=== PATIENT | female | born 1935 | race Caucasian/White ===

== ENCOUNTER → 2017-07-03 | Outpatient (CLI) | payer MEDICARE, OTHER ==
[~2017-07-03] MED LIST: ABAC300; ALBU90I INH; ALBU90OI61 INH; AMLO10 PO; ASPI81EC PO; AZIT250 PO; Amlodipine Besy10 MG PO; BENZ100A PO; Bupropion HCl150 M2 PO; CEPH500 PO; CODGUAEL PO; DOCU100 PO; DONE10 PO; EXFORGE; FURO20 PO; FURO40 PO; GABA100 PO; HUMULIN SC; HYDACE5 PO; HYDR1TAB94 PO; Hair, Skin & N1 EACH PO; IBUP400; INS70/30I SC; INSU7030P SC; IRON325 MG PO; Klor-Con 1010 MEQ PO; LORA.5 PO; Lisinopril2.5 MG PO; MELO7.5 PO; METF850 PO; METO25ER PO; MYRBETRIQ50 MG PO; Neurontin 100100 MG PO; OMEP20ER PO; OXYB5 PO; PARO10 PO; PARO20 PO; POTCHL10ER PO; PRAV20 PO; PRED20 PO; Paxil40 MG PO; SIMV10 PO; SULTRIDS PO; Simvastatin20 MG PO; Toviaz4 MG PO; XARELTO20 MG PO
[2017-07-03 18:29] LABS: Source, Urine Clean Catch
[2017-07-03 18:38] LABS: Bacteria Many /hpf; Squamous Epithelial Cells Mod /hpf (Few)
[2017-07-03 18:42] LABS: BASOPHILS ABSOLUTE AUTO 0.04 K/mm3 (0.00-0.23); BASOPHILS PERCENT AUTO 1 % (0-2); EOSINOPHILS ABSOLUTE AUTO 0.05 K/mm3 (0.00-0.68); EOSINOPHILS PERCENT AUTO 1 % (0-6); Hematocrit 35.5 % (33.0-51.0); Hemoglobin 12.2 g/dL (11.5-16.0); IMMATURE GRAN ABSOLUTE AUTO 0.02 K/mm3 (0.00-0.10); IMMATURE GRAN PERCENT AUTO 0 % (0-1); LYMPHOCYTES ABSOLUTE AUTO 1.95 K/mm3 (0.84-5.20); LYMPHOCYTES PERCENT AUTO 24 % (21-46); MONOCYTES ABSOLUTE AUTO 0.72 K/mm3 (0.16-1.47); MONOCYTES PERCENT AUTO 9 % (4-13); Mean Corpuscular HGB 31.8 pg (26.0-34.0); Mean Corpuscular HGB Conc 34.4 g/dL (31.5-36.5); Mean Corpuscular Volume 92 fL (80-100); Mean Platelet Volume 8.8 fL (9.1-12.4); NEUTROPHILS ABSOLUTE AUTO 5.22 K/mm3 (1.96-9.15); NEUTROPHILS PERCENT AUTO 65 % (41-73); Platelet Count 274 K/mm3 (150-400); RDW Coefficient Variation 12.9 % (11.7-14.2); RDW Standard Deviation 42.9 fL (35.1-46.3); Red Blood Cell Count 3.84 M/mm3 (3.80-5.20)
[2017-07-03 18:59] LABS: Albumin, Blood 3.5 g/dL (3.4-5.0); Bilirubin, Total 0.8 mg/dL (0.1-1.0); Bun/Creatinine Ratio 13.2 (12.0-20.0); Creatinine, Blood 1.29 mg/dL (0.40-1.00); Globulin, Blood 3.5 g/dL (2.2-4.0); Potassium, Blood 4.4 mmol/L (3.5-5.5)
== END | disposition home or self-care (01) ==
LOC: LAB SHORT 18:27 → LAB EV 18:27
PROVIDERS: Physician Assistant
DX: R06.00 Dyspnea, unspecified (principal); N39.0 Urinary tract infection, site not specified; R35.0 Frequency of micturition
CPT/HCPCS: 80053; 81015; 83880; 85025; 87077; 87086; 87186

== ENCOUNTER 2018-05-01 15:04 | Inpatient (IN) | payer MEDICARE, OTHER ==
[~2018-05-01] VITALS: Ht 170.2 cm; Wt 91.4 kg
[~2018-05-01 15:04] MED LIST changes: -INS70/30I SC; -METO25ER PO; +METO50ER PO; +NOVOLIN 70100 UNIT/1 SC; +XARELTO15 MG PO; -XARELTO20 MG PO
[2018-05-01 19:14] LABS: Source, Urine Catheter
[2018-05-01 19:28] LABS: Bilirubin, Urine Neg (Neg); Blood, Urine Neg (Neg); Glucose Qualitative, Urine Neg (Neg); Ketones, Urine Neg (Neg); Leukocyte Esterase, Urine 1+ (Neg); Nitrite, Urine Pos (Neg); Protein, Urine Neg (Neg); Urobilinogen, Urine NORM (Normal)
[2018-05-01 20:00] LABS: Appearance, Urine Hazy (Clear); Color, Urine Yellow (P-Yellow)
[2018-05-01 20:06] LABS: Amorphous Light (0-Heavy); Bacteria Many /hpf; Red Blood Cells, Urine 0-2 /hpf (0-2); Squamous Epithelial Cells Few /hpf (Few)
[2018-05-01 22:02] LABS: BASOPHILS ABSOLUTE AUTO 0.03 K/mm3 (0.00-0.23); BASOPHILS PERCENT AUTO 1 % (0-2); EOSINOPHILS ABSOLUTE AUTO 0.09 K/mm3 (0.00-0.68); EOSINOPHILS PERCENT AUTO 2 % (0-6); Hematocrit 32.6 % (33.0-51.0); Hemoglobin 10.8 g/dL (11.5-16.0); IMMATURE GRAN ABSOLUTE AUTO 0.01 K/mm3 (0.00-0.10); IMMATURE GRAN PERCENT AUTO 0 % (0-1); LYMPHOCYTES ABSOLUTE AUTO 1.36 K/mm3 (0.84-5.20); LYMPHOCYTES PERCENT AUTO 28 % (21-46); MONOCYTES ABSOLUTE AUTO 0.35 K/mm3 (0.16-1.47); MONOCYTES PERCENT AUTO 7 % (4-13); Mean Corpuscular HGB 33.6 pg (26.0-34.0); Mean Corpuscular HGB Conc 33.1 g/dL (31.5-36.5); Mean Corpuscular Volume 102 fL (80-100); Mean Platelet Volume 9.2 fL (9.1-12.4); NEUTROPHILS ABSOLUTE AUTO 3.06 K/mm3 (1.96-9.15); NEUTROPHILS PERCENT AUTO 63 % (41-73); Platelet Count 233 K/mm3 (150-400); RDW Coefficient Variation 14.9 % (11.7-14.2); RDW Standard Deviation 55.5 fL (35.1-46.3); Red Blood Cell Count 3.21 M/mm3 (3.80-5.20)
[2018-05-01 22:47] LABS: Albumin, Blood 3.3 g/dL (3.4-5.0); Albumin/Globulin Ratio 1.2 (0.8-1.8); Bilirubin, Total 0.3 mg/dL (0.1-1.0); Bun/Creatinine Ratio 11.8 (12.0-20.0); Calcium, Blood 8.2 mg/dL (8.5-10.1); Creatinine, Blood 3.05 mg/dL (0.40-1.00); Globulin, Blood 2.7 g/dL (2.2-4.0); Potassium, Blood 4.1 mmol/L (3.5-5.5)
[2018-05-01 23:10] LABS: Thyroid Stimulating Hormone 1.5 uIU/mL (0.360-4.800)
--- NOTE | 2018-05-02 04:27 | NUR ---
SHIFT SUMMARY: PT IS ALERT AND ORIENTED. PT IS CALM AND COOPERATIVE WITH CARE. PT CALLS APPROPRIATELY. PT IS A ONE PERSON ASSIST FOR TRANSFER TO THE [facility]. PT CONTINENT OVERNIGHT. FLUIDS RUNNING ORDERED. VITAL SIGNS STABLE. PT DENIES PAIN, NAUSEA, VOMITING, AND SOB. PT DID NOT SLEEP OVERNIGHT. BED IN LOW POSITION, CALL LIGHT WITHIN REACH. WILL REPORT TO DAY NURSE.
[2018-05-02 05:15] LABS: Hematocrit 33.4 % (33.0-51.0); Hemoglobin 10.5 g/dL (11.5-16.0); Mean Corpuscular HGB 32.4 pg (26.0-34.0); Mean Corpuscular HGB Conc 31.4 g/dL (31.5-36.5); Mean Corpuscular Volume 103 fL (80-100); Mean Platelet Volume 9.7 fL (9.1-12.4); Platelet Count 207 K/mm3 (150-400); RDW Coefficient Variation 14.8 % (11.7-14.2); Red Blood Cell Count 3.24 M/mm3 (3.80-5.20); White Blood Cell Count 6.79 K/mm3 (4.00-11.30)
[2018-05-02 05:38] LABS: Albumin, Blood 3.1 g/dL (3.4-5.0); Albumin/Globulin Ratio 1.1 (0.8-1.8); Bilirubin, Total 0.4 mg/dL (0.1-1.0); Bun/Creatinine Ratio 12.2 (12.0-20.0); Creatinine, Blood 3.11 mg/dL (0.40-1.00); Globulin, Blood 2.7 g/dL (2.2-4.0); Potassium, Blood 3.8 mmol/L (3.5-5.5); Total Protein, Blood 5.8 g/dL (6.4-8.2)
--- NOTE | 2018-05-02 11:40 | NUR ---
ATTEMPTED TO UPDATE MED LIST. [facility] CUR[facility] CL[facility].
--- NOTE | 2018-05-02 17:43 | NUR ---
SHIFT SUMMARY PATIENT HAS BEEN TEARFUL TODAY REGARDING HER HOME SITUATION. SON IN ROOM WORKING OUT HOME SITUATION TO HELP WITH SAFE DISCHARGE. AT THIS POINT IT SOUNDS LIKE PATIENT'S HAS LEFT THE PROPERTY AND PATIENT IS SAFE TO DISCHARGE BACK HOME WITH HER CAREGIVER. SON STATES HE IS UNABLE TO TAKE PATIENT HOME AT THIS TIME. SOCIAL SERVICE CONSULT PLACED TO ENSURE SAFE DISCHARGE. MEDICALLY PATIENT HAS HAD NO ACUTE CHANGES. SHE IS INCONTINENT BUT AWARE OF WHEN SHE URINATES. ABLE TO MAKE HER NEEDS KNOWN. DIET CHANGED TO ADA DIET, LACTOSE FREE. PATIENT CURRENTLY SLEEPING. TOLERATING FLUIDS.
--- NOTE | 2018-05-02 22:17 | NUR ---
ASSUMED CARE OF PT AT 2119. PT W/O S/S DISTRESS AT THIS TIME.
--- NOTE | 2018-05-03 06:14 | NUR ---
SUMMARY: A/O BUT OCCASIONALLY FORGETFULL AND CALLS INTO HALLS. SHE SEEMS SOMEWHAT FLAT AND DEPRESSED AT TIMES STATING SHE HAS "NOONE WHO CARES ABOUT HER ANYMORE". PT REMINDED THAT SON IS HERE FROM OUT OF STATE AND IS ASSISTING W/SAFE D/C PLANNING. SHE IS W/C BOUND AT BASELINE D/T L.FOOT DEFORMITY FROM OLD ANKLE FX. SHE WAS ASSISTED W/BEDPAN USE THIS SHIFT W/ATTENDS CHANGED PRN. SHE IS ABLE TO MAKE NEEDS KNOWN BUT HAS SOME NIGHT TIME URGE INCONTINENCE. PT HAD BM THIS SHIFT. NS INFUSES AT 125 ML/HR. VSS/AFEBRILE AND NO ACUTE CHANGES. POSSIBLE D/C HOME W/CAREGIVERS TODAY.
[2018-05-03 13:40] LABS: Bun/Creatinine Ratio 13.9 (12.0-20.0); Creatinine, Blood 2.44 mg/dL (0.40-1.00)
--- NOTE | 2018-05-03 17:53 | NUR ---
SHIFT SUMMARY PT ALERT AND ORIENTED. VS STABLE. PT ABLE TO COMMUNICATE NEEDS. PT TEARFUL THROUGHOUT SHIFT ABOUT HOME SITUATION. CINNAMON GRINDER WORKING WITH PT. PT ABLE TO REPOSITION IN BED WITH MINIMAL ASSISTANCE. PT ABLE TO USE BED LEARY TO VOID. NS INFUSING PER ORDERS. NO CHANGES SINCE INITIAL ASSESSMENT. WILL CONTINUE TO MONITOR AND REPORT TO ONCOMING RN. CALL LIGHT IN REACH.
--- NOTE | 2018-05-04 03:57 | NUR ---
PT RESTED COMFORTABLY ALL EVENING (TYLENOL 650MG GIVEN X 1 FOR RIGHT FOOT ACHE). PT DENIES NAUSEA. PTS BED LOW POSITION AND BLADIMIR LIGHT AT SIDE. PT SLIGHTLY FORGETFUL, HOWEVER; ABLE TO FOLLOW ALL SIMPLE VERBAL COMMANDS.
[2018-05-04 05:18] LABS: Calcium, Blood 7.8 mg/dL (8.5-10.1); Creatinine, Blood 2.15 mg/dL (0.40-1.00); Potassium, Blood 3.7 mmol/L (3.5-5.5)
--- NOTE | 2018-05-04 12:28 | NUR ---
PT EMOTIONAL PT EMOTIONAL AFTER BEING INFORMED THAT SHE WILL BE STAYING ANOTHER NIGHT. PT SON AWARE OF PT STAYING THE NIGHT.
--- NOTE | 2018-05-04 16:56 | NUR ---
SHIFT SUMMARY PT & FAMILY AWARE OF STAYING ANOTHER NIGHT. PT IN STABLE CONDITION WITH VSS. PT HAS HEADACHE THIS AFTERNOON. MEDICATED PER EMAR AND GIVEN WET WASHCLOTH FOR COMFORT. NO OTHER CHANGES IN ASSESSMENT AT THIS TIME. WILL CONTINUE TO MONITOR UNTIL TURNOVER IS COMPLETE. PT LIKELY TO DC TOMORROW.
--- NOTE | 2018-05-04 17:50 | NUR ---
PT VERY CONCERNED ABOUT HER CAREGIVER VISITING HER. PT STATES HER CAREGIVER SAID SHE WOULD BE HERE THIS AFTERNOON. PT DOES NOT HAVE CAREGIVER NUMBER AND THERE IS NOT ONE ON FILE TO CALL. WILL CONTINUE TO MONITOR
--- NOTE | 2018-05-04 23:03 | NUR ---
05/04/18 2300 SLIGHT WHEEZING NOTED. DENIES SOB. RECHECKED VITALS TO ASSESS STATUS. STATES PAIN DOWN TO "3" NOW. DOZING ON AND OFF. SLIGHTLY CONFUSED TO SURROUNDINGS. RN RE-ORIENTED HER. RESTING COMFORTABLY.
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
[2018-05-05 05:17] LABS: BASOPHILS ABSOLUTE AUTO 0.03 K/mm3 (0.00-0.23); BASOPHILS PERCENT AUTO 0 % (0-2); EOSINOPHILS PERCENT AUTO 0 % (0-6); Hematocrit 32.3 % (33.0-51.0); Hemoglobin 10.5 g/dL (11.5-16.0); IMMATURE GRAN ABSOLUTE AUTO 0.06 K/mm3 (0.00-0.10); IMMATURE GRAN PERCENT AUTO 1 % (0-1); LYMPHOCYTES ABSOLUTE AUTO 0.69 K/mm3 (0.84-5.20); LYMPHOCYTES PERCENT AUTO 7 % (21-46); MONOCYTES PERCENT AUTO 9 % (4-13); Mean Corpuscular HGB 32.6 pg (26.0-34.0); Mean Corpuscular HGB Conc 32.5 g/dL (31.5-36.5); Mean Corpuscular Volume 100 fL (80-100); Mean Platelet Volume 9.8 fL (9.1-12.4); NEUTROPHILS ABSOLUTE AUTO 8.73 K/mm3 (1.96-9.15); NEUTROPHILS PERCENT AUTO 84 % (41-73); Platelet Count 177 K/mm3 (150-400); RDW Coefficient Variation 14.6 % (11.7-14.2); RDW Standard Deviation 54.2 fL (35.1-46.3); Red Blood Cell Count 3.22 M/mm3 (3.80-5.20); White Blood Cell Count 10.41 K/mm3 (4.00-11.30)
[2018-05-05 05:38] LABS: Anion Gap 12 mmol/L (6-16); Blood Urea Nitrogen 21 mg/dL (8-24); Bun/Creatinine Ratio 11.7 (12.0-20.0); CO2, Blood 17 mmol/L (21-32); Calcium, Blood 8.1 mg/dL (8.5-10.1); Chloride, Blood 110 mmol/L (98-108); Glomerular Filtration Rate 29 (60-); Glucose, Blood 250 mg/dL (70-99); Phosphorus, Blood 3.4 mg/dL (2.5-4.9); Potassium, Blood 4.1 mmol/L (3.5-5.5); Sodium, Blood 139 mmol/L (136-145)
--- NOTE | 2018-05-05 06:47 | NUR ---
05/05/18 0640 BLADDER SCAN = 256 ML. PT WAS INCONTINENT PRIOR. KENDRICK CARE GIVEN. VITALS STABLE. PT SLEEPING PRIOR TO SCAN. DENIES ANY S/S OR DISCOMFORT.
--- NOTE | 2018-05-05 16:48 | NUR ---
SHIFT SUMMARY PT GOT UP INTO CHAIR THIS SHIFT FOR BREAKFAST. PT 1P ASSIST TRANSFER BACK TO BED WITH AIDE. PT PLANNED TO DISCHARGE TO A FACILITY/[facility] HOME. PT CURRENTLY BEING EVALUATED BY NICHOLE ASHLEY. NO OTHER CHANGES IN ASSESSMENT AT THIS TIME. VSS. WILL CONTINUE TO MONITOR UNTIL TURNOVER IS COMPLETE.
--- NOTE | 2018-05-06 05:02 | NUR ---
05/06/18 0455 BLADDER SCAN = 36 ML. VITALS STABLE AND GOING BACK TO SLEEP. NO COMPLAINTS.
--- NOTE | 2018-05-06 16:20 | NUR ---
HOME MEDS PT DOES NOT CURRENTLY HAVE SEVERAL HOME MEDS ORDERED AT THIS TIME. DR. DELACRUZ MADE AWARE THIS AM. DELPHINE COOMBS DC DIRECTOR IT INFORMED THIS NURSE THAT PT WILL NOT BE LEAVING TODAY. MALVIN INFORMED OF HOME MEDS NEEDING ORDERED. MALVIN STATED SHE WOULD BRING IT TO THE ATTENTION OF DR. DELACRUZ SINCE THE PT WILL NOT BE DISCHARGING TODAY.
--- NOTE | 2018-05-06 16:37 | NUR ---
HOME MEDS ORDERED VERBAL ORDER FROM DR. DELACRUZ TO ORDER HOME MEDS LISTED ON DC PAPERWORK. MEDS ORDERED. LOVENOX REPLACED WITH XARELTO DAILY.
--- NOTE | 2018-05-06 17:31 | NUR ---
SHIFT SUMMARY NO CHANGES IN ASSESSMENT AT THIS TIME. VSS. PT AWAITING PLACEMENT FOR DC. CARE MANAGERS STATE HAVING DIFFICULTY GETTING AHOLD OF PTS . MESSAGES LEFT. PT HOME MEDICATIONS ORDERED. WILL CONTINUE TO MONITOR UNTIL TURNOVER IS COMPLETE.
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
[2018-05-07] MEDS ORDERED: ALLO100 PO (16:24)
[2018-05-07] MEDS ORDERED: DONE5 PO (16:26)
[2018-05-07] MEDS ORDERED: SERT50 PO (16:27)
[2018-05-07] MEDS ORDERED: DOCU100 PO (16:28)
--- NOTE | 2018-05-07 18:01 | NUR ---
DOT COOMBS FROM [employer] SPOKE W/KENY (CG) AND STATED SHE WLD BE HERE TO PICK PT UP AT 1700. AT 1800 CALLED PT'S HOME # [phone] AND SPOUSE ANSWERED AND STATED KENY WAS WORKING AND WLD PICK PT UP AFTER (CLD NOT OFFER TIME).
--- NOTE | 2018-05-08 06:48 | NUR ---
SHIFT SUMMARY/DC (LATE ENTRY) PT HAD NO ACUTE CHANGES DURING SHIFT, STATED ALL SHIFT ANXIETY ABOUT RETURNING HOME. EXPLAINED TO PT ABOUT NEW SERVICE PROVIDER, SHE WAS FAMILIAR WITH CG (KENY) AND HAPPY ABOUT THAT. CG ARRIVED AT 1939 TO EDUCATION SITE MANAGER PT, REVIEWED DC W/PT AND CG, BOTH VERBALIZED UNDERSTANDING. CG STATED SHE WAS GOING TO USE THE NEW MED LIST TO SORT OUT PATIENTS MEDS AT HOME, SHE WAS HAPPY FOR THE UPDATED LIST. PT WAS TRANSPORTED VIA W/C TO [place] IN PRIVATE VEHICLE @ 1944.
== END 2018-05-07 18:50 | disposition home or self-care (01) | DRG 682 ==
LOC: ER 15:04 → MEDS 18:14 → ER 05-02 01:02 → MEDS 05-02 01:04
PROVIDERS: Emergency Medicine; Family Medicine; Internal Medicine; ADMIT Internal Medicine
DX: N17.9 Acute kidney failure, unspecified (principal); G93.41 Metabolic encephalopathy; N39.0 Urinary tract infection, site not specified; I13.0 Hypertensive heart and chronic kidney disease with heart failure and stage 1 through stage 4 chronic kidney disease, or unspecified chronic kidney disease; I50.22 Chronic systolic (congestive) heart failure; F03.91 Unspecified dementia, unspecified severity, with behavioral disturbance; F05 Delirium due to known physiological condition; Z51.5 Encounter for palliative care; E11.22 Type 2 diabetes mellitus with diabetic chronic kidney disease; N18.3 Chronic kidney disease, stage 3 (moderate); Z79.4 Long term (current) use of insulin; F32.9 Major depressive disorder, single episode, unspecified; I48.2 Chronic atrial fibrillation; E86.0 Dehydration; K21.9 Gastro-esophageal reflux disease without esophagitis; G47.30 Sleep apnea, unspecified; E78.5 Hyperlipidemia, unspecified; D32.9 Benign neoplasm of meninges, unspecified; B96.20 Unspecified Escherichia coli [E. coli] as the cause of diseases classified elsewhere
CPT/HCPCS: 36415; 70450; 71046; 80048; 80053; 80069; 81001; 82947; 83880; 84443; 84484; 85025; 85027; 87077; 87086; 87186; 93005; 93010; 96365; 99285-25; J0696; J1650; J1815; J3010; J7030; P9612

== ENCOUNTER 2018-05-08 14:00 | Inpatient (IN) | payer MEDICARE, OTHER ==
[~2018-05-08] VITALS: Ht 165.1 cm; Wt 99.8 kg
[~2018-05-08 14:00] MED LIST changes: +ALLO100 PO; +DONE5 PO; +SERT50 PO
[2018-05-08 15:25] LABS: Calcium, Ionized (POC) 1.05 mmol/L (1.10-1.46); Chloride (POC) 106 mmol/L (98-108); Creatinine (POC) 3.5 mg/dL (0.6-1.0); Glucose (ISTAT POC) 240 mg/dL (70-99); Hemoglobin (POC) 8.8 g/dL (12.0-16.0); Potassium (POC) 5.6 mmol/L (3.5-5.5); Sodium (POC) 133 mmol/L (135-148); Total CO2 (POC) 12 mmol/L (21-32)
[2018-05-08 16:27] LABS: BASOPHILS ABSOLUTE AUTO 0.01 K/mm3 (0.00-0.23); BASOPHILS PERCENT AUTO 0 % (0-2); EOSINOPHILS PERCENT AUTO 0 % (0-6); Hematocrit 29.2 % (33.0-51.0); Hemoglobin 9.1 g/dL (11.5-16.0); IMMATURE GRAN ABSOLUTE AUTO 0.09 K/mm3 (0.00-0.10); IMMATURE GRAN PERCENT AUTO 1 % (0-1); LYMPHOCYTES ABSOLUTE AUTO 0.52 K/mm3 (0.84-5.20); LYMPHOCYTES PERCENT AUTO 5 % (21-46); MONOCYTES ABSOLUTE AUTO 1.07 K/mm3 (0.16-1.47); MONOCYTES PERCENT AUTO 9 % (4-13); Mean Corpuscular HGB 33.2 pg (26.0-34.0); Mean Corpuscular HGB Conc 31.2 g/dL (31.5-36.5); Mean Platelet Volume 11.2 fL (9.1-12.4); NEUTROPHILS ABSOLUTE AUTO 9.67 K/mm3 (1.96-9.15); NEUTROPHILS PERCENT AUTO 85 % (41-73); NRBC ABSOLUTE 0.61 K/mm3 (0.00-0.02); NRBC Auto 5.4 /100 WBC (0.0-0.2); Platelet Count 156 K/mm3 (150-400); RDW Coefficient Variation 14.9 % (11.7-14.2); RDW Standard Deviation 58.2 fL (35.1-46.3); Red Blood Cell Count 2.74 M/mm3 (3.80-5.20); White Blood Cell Count 11.36 K/mm3 (4.00-11.30)
[2018-05-08 16:28] LABS: Mean Corpuscular Volume 107 fL (80-100)
[2018-05-08 16:50] LABS: Albumin/Globulin Ratio 0.9 (0.8-1.8); Bilirubin, Total 1.6 mg/dL (0.1-1.0); Bun/Creatinine Ratio 17.5 (12.0-20.0); Calcium, Blood 8.7 mg/dL (8.5-10.1); Creatinine, Blood 3.14 mg/dL (0.40-1.00); Globulin, Blood 3.3 g/dL (2.2-4.0); Magnesium, Blood 2.2 mg/dL (1.6-2.4); Potassium, Blood 5.7 mmol/L (3.5-5.5); Total Protein, Blood 6.3 g/dL (6.4-8.2)
[2018-05-08 20:44] LABS: PO2 Arterial 96.2 mmHg (80-100)
[2018-05-08 20:45] LABS: pH Blood Arterial 7.19 (7.35-7.45)
[2018-05-08 21:56] LABS: Prothrombin Time Results >90.0 Sec (9.7-11.5)
[2018-05-08 22:02] LABS: International Normalized Ratio No Calc
[2018-05-08 22:03] LABS: Albumin/Globulin Ratio 0.9 (0.8-1.8); Bilirubin, Total 1.7 mg/dL (0.1-1.0); Bun/Creatinine Ratio 17.2 (12.0-20.0); Calcium, Blood 8.5 mg/dL (8.5-10.1); Creatinine, Blood 3.2 mg/dL (0.40-1.00); Globulin, Blood 3.3 g/dL (2.2-4.0); Potassium, Blood 6.1 mmol/L (3.5-5.5); Total Protein, Blood 6.3 g/dL (6.4-8.2)
--- NOTE | 2018-05-09 01:20 | NUR ---
ADMIT: PT TRANSFERRED VIA GURNEY TO ICU 9 WITH HEART MONITOR ATTACHED AND RN AT BEDSIDE. PT IS CONFUSED AND DEMENTED AT BASELINE. C/O BEING COLD. TEMP 97.8, WARM BLANKETS APPLIED. LS CLEAR T/O WITH BIOX 94% ON RA. HEART SOUNDS DISTANT WITH MONITOR SHOWING AFIB WITH HR 67. 20G IV R HAND S/L. 20G R A/C WITH LR RUNNING AT BOLUS PER DR. JUNIOR, THEN TO RUN AT 150CC/HR. NEW 20G IV PLACED IN YESENIA FOR FFP. ABD R/D WITH HYPO BTX4. BILAT FEET ARE MOTTLED L>R. DOPPLER PULSES FOUND DP AND PT.
[2018-05-09 03:41] LABS: BASOPHILS ABSOLUTE AUTO 0.01 K/mm3 (0.00-0.23); BASOPHILS PERCENT AUTO 0 % (0-2); EOSINOPHILS PERCENT AUTO 0 % (0-6); Hematocrit 26.4 % (33.0-51.0); Hemoglobin 8.1 g/dL (11.5-16.0); IMMATURE GRAN ABSOLUTE AUTO 0.13 K/mm3 (0.00-0.10); IMMATURE GRAN PERCENT AUTO 1 % (0-1); LYMPHOCYTES ABSOLUTE AUTO 0.59 K/mm3 (0.84-5.20); LYMPHOCYTES PERCENT AUTO 6 % (21-46); MONOCYTES ABSOLUTE AUTO 0.99 K/mm3 (0.16-1.47); MONOCYTES PERCENT AUTO 9 % (4-13); Mean Corpuscular HGB 33.3 pg (26.0-34.0); Mean Corpuscular HGB Conc 30.7 g/dL (31.5-36.5); Mean Corpuscular Volume 109 fL (80-100); Mean Platelet Volume 11.6 fL (9.1-12.4); NEUTROPHILS ABSOLUTE AUTO 9.07 K/mm3 (1.96-9.15); NEUTROPHILS PERCENT AUTO 84 % (41-73); NRBC ABSOLUTE 1.34 K/mm3 (0.00-0.02); NRBC Auto 12.4 /100 WBC (0.0-0.2); Platelet Count 118 K/mm3 (150-400); RDW Standard Deviation 59.5 fL (35.1-46.3); Red Blood Cell Count 2.43 M/mm3 (3.80-5.20); White Blood Cell Count 10.79 K/mm3 (4.00-11.30)
[2018-05-09 04:03] LABS: Magnesium, Blood 2.1 mg/dL (1.6-2.4)
[2018-05-09 04:04] LABS: Prothrombin Time Results 47.6 Sec (9.7-11.5)
[2018-05-09 04:05] LABS: International Normalized Ratio 5.22
[2018-05-09 04:26] LABS: Alanine Aminotransfer (ALT/SGP 4034 U/L (12-78); Albumin, Blood 3.3 g/dL (3.4-5.0); Alk Phos 106 U/L (50-136); Anion Gap 27 mmol/L (6-16); Aspartate Aminotrans (AST/SGOT 8359 U/L (12-37); Bilirubin, Total 1.8 mg/dL (0.1-1.0); Blood Urea Nitrogen 56 mg/dL (8-24); Bun/Creatinine Ratio 18.3 (12.0-20.0); CO2, Blood 9 mmol/L (21-32); Calcium, Blood 8.1 mg/dL (8.5-10.1); Chloride, Blood 97 mmol/L (98-108); Creatinine, Blood 3.06 mg/dL (0.40-1.00); Globulin, Blood 3.2 g/dL (2.2-4.0); Glomerular Filtration Rate 16 (60-); Glucose, Blood 339 mg/dL (70-99); Phosphorus, Blood 7.8 mg/dL (2.5-4.9); Potassium, Blood 5.6 mmol/L (3.5-5.5); Sodium, Blood 133 mmol/L (136-145); Total Protein, Blood 6.5 g/dL (6.4-8.2)
[2018-05-09 04:50] LABS: PCO2 Arterial 17.9 mmHg (35-45); PO2 Arterial 109 mmHg (80-100); pH Blood Arterial 7.21 (7.35-7.45)
--- NOTE | 2018-05-09 06:26 | NUR ---
SHIFT SUMMARY: PT CONTINUES TO BE CONFUSED AND UNABLE TO HOLD A CONVERSATION. LACTIC ACID CONTINUES TO CLIMB. INR DOWN AFTER 3 UNITS FFP. LS CLEAR T/O WITH BIOX 92% ON RA. AFIB WITH HR 60-80'S. FEET ARE MOTTLED BILAT L>R.THE BORDERS OF THE L FOOT MOTTLING HAS BEEN MARKED.
[2018-05-09 08:11] LABS: BASOPHILS ABSOLUTE AUTO 0.01 K/mm3 (0.00-0.23); BASOPHILS PERCENT AUTO 0 % (0-2); EOSINOPHILS PERCENT AUTO 0 % (0-6); Hematocrit 28.2 % (33.0-51.0); Hemoglobin 8.3 g/dL (11.5-16.0); IMMATURE GRAN ABSOLUTE AUTO 0.11 K/mm3 (0.00-0.10); IMMATURE GRAN PERCENT AUTO 1 % (0-1); LYMPHOCYTES ABSOLUTE AUTO 0.63 K/mm3 (0.84-5.20); LYMPHOCYTES PERCENT AUTO 6 % (21-46); MONOCYTES ABSOLUTE AUTO 0.81 K/mm3 (0.16-1.47); MONOCYTES PERCENT AUTO 8 % (4-13); Mean Corpuscular HGB 32.8 pg (26.0-34.0); Mean Corpuscular HGB Conc 29.4 g/dL (31.5-36.5); Mean Platelet Volume 11.9 fL (9.1-12.4); NEUTROPHILS PERCENT AUTO 85 % (41-73); NRBC ABSOLUTE 1.96 K/mm3 (0.00-0.02); NRBC Auto 18.4 /100 WBC (0.0-0.2); Platelet Count 109 K/mm3 (150-400); RDW Coefficient Variation 15.2 % (11.7-14.2); RDW Standard Deviation 61.7 fL (35.1-46.3); Red Blood Cell Count 2.53 M/mm3 (3.80-5.20); White Blood Cell Count 10.66 K/mm3 (4.00-11.30)
[2018-05-09 08:29] LABS: Mean Corpuscular Volume 112 fL (80-100)
[2018-05-09 08:41] LABS: Vancomycin, Random 10.5 ug/mL
[2018-05-09 08:42] LABS: Prothrombin Time Results 69.6 Sec (9.7-11.5)
[2018-05-09 08:43] LABS: Albumin, Blood 3.1 g/dL (3.4-5.0); Bilirubin, Total 1.9 mg/dL (0.1-1.0); Bun/Creatinine Ratio 17.8 (12.0-20.0); Calcium, Blood 7.8 mg/dL (8.5-10.1); Creatinine, Blood 3.15 mg/dL (0.40-1.00); Globulin, Blood 3.1 g/dL (2.2-4.0); Potassium, Blood 5.1 mmol/L (3.5-5.5); Total Protein, Blood 6.2 g/dL (6.4-8.2)
[2018-05-09 08:48] LABS: Source, Urine Catheter
[2018-05-09 08:51] LABS: International Normalized Ratio 7.93
[2018-05-09 09:04] LABS: Blood, Urine 5+ (Neg); Glucose Qualitative, Urine 2+ (Neg); Ketones, Urine 2+ (Neg); Leukocyte Esterase, Urine 1+ (Neg); Nitrite, Urine Neg (Neg); Protein, Urine 3+ (Neg); Specific Gravity, Urine 1.025 (1.003-1.022); Urobilinogen, Urine 2+ (Normal)
[2018-05-09 09:29] LABS: Bilirubin, Urine 1+ (Neg)
[2018-05-09 09:30] LABS: Appearance, Urine Cloudy (Clear); Color, Urine Yellow (P-Yellow)
[2018-05-09 09:43] LABS: Red Blood Cells, Urine 50-100 /hpf (0-2)
[2018-05-09 09:48] LABS: Squamous Epithelial Cells Many /hpf (Few)
[2018-05-09 09:51] LABS: Bacteria Many /hpf
--- NOTE | 2018-05-09 10:12 | NUR ---
COMFORT CARE: PT HAS BEEN VERY CONFUSED THIS MORNING, HALLUCINATING, TALKING NONSENSE. DR. CANTOR SPOKE WITH PT'S AND CAREGIVER AND THYE HAVE DECIDED TO GO COMFORT CARE. PT'S CAREGIVER REPORTS THAT PT AND HER HAD SPOKE ABOUT THIS WITHIN THE LAST MONTH AND BELIEVES THAT IS WHAT THE PT WOULD WANT. PT'S SAYS THAT HE HAS NEVER TALKED WITH PT ABOUT WHAT SHE WOULD WANT REGARDING TREATMENTS. DR. TENA CAME AND SPOKE WITH FAMILY WELL AND PT'S HSUBAND REITERATES THAT COMFORT CARE IS WHAT THEY WANT. OFFERED TO NOTIFY MACHINE LEATHER TRIMMER FOR PT AND HE REFUSES SAYING THAT HE IS IN CONTACT WITH HIS OWN. PT'S SON IS IN [place] ON VACATION AND HAS BEEN NOTIFIED BY PT'S . PT'S CLAIR IS DRIVING UP FROM [place]. SUPPORT OFFERED TO BUT HE REFUSES. PALLIATIVE CARE NOTIFIED.
[2018-05-09 10:17] LABS: Adenovirus Not Detected (NOT DETECT); Bordetella pertussis Not Detected (NOT DETECT); Chlamydophila pneumoniae Not Detected (NOT DETECT); Coronavirus 229E Not Detected (NOT DETECT); Coronavirus HKU1 Not Detected (NOT DETECT); Coronavirus NL63 Not Detected (NOT DETECT); Coronavirus OC43 Not Detected (NOT DETECT); Human Metapneumovirus Not Detected (NOT DETECT); Human Rhinovirus/Enterovirus Not Detected (NOT DETECT); Influenza A Not Detected (NOT DETECT); Influenza A/2009-H1 Not Detected (NOT DETECT); Influenza A/H1 Not Detected (NOT DETECT); Influenza A/H3 Not Detected (NOT DETECT); Influenza B Not Detected (NOT DETECT); Mycoplasma pneumoniae Not Detected (NOT DETECT); Parainfluenza Virus 1 Not Detected (NOT DETECT); Parainfluenza Virus 2 Not Detected (NOT DETECT); Parainfluenza Virus 3 Not Detected (NOT DETECT); Parainfluenza Virus 4 Not Detected (NOT DETECT); Respiratory Syncytial Virus Not Detected (NOT DETECT)
--- NOTE | 2018-05-09 12:08 | NUR ---
REASSESSMENT: PT HAS BEEN RESTING OFF AND ON THROUGHOUT THE MORNING. SHE CONTINUES TO BE VERY CONFUSED, BUT HAS BEEN MORE COMFORTABLE WHEN HER FAMILY AND VISITORS ARE IN THE ROOM WITH HER. PALLIATIVE CARE WENT IN AND SPOKE WITH PT AND HER . CONTINUING TO OFFER SUPPORT. DRINKS PROVIDED TO PT'S HSUBAND. CONTINUING TO MONITOR.
--- NOTE | 2018-05-09 13:34 | NUR ---
TRANSFER: PT TRANSFERRED TO RM 308 VIA BED WITH RN. ALL BELONGINGS SENT WITH PT. PT'S INFORMED OF MOVE AND ASSISTED TO NEW ROOM WELL. PT TOLERATED TRANSFER WELL.
--- NOTE | 2018-05-09 14:53 | NUR ---
I was call in on a call back for spiritual care by the charge nurse. I Approached Marisel, patient's , only to find him extremely angry. He stated that he had been excluded from patient decision making and that the hospital handled things very poorly. I defused Marisel by actively listening, by pointing him to the appropriate sources for help with the particular issues he was having and by diverting his attention back to the patient. I facilitated a life/family review of patient, discussed patient's current medical status and explored patient and Marisel's taoist traditions. I went and got water for patient, I provided pastoral executive assistant to general counsel and provided prayer for the patient. Patient and Marisel responded well to all interventions and displayed evidence of reduced stress. I continue to remain available to patient and family.
--- NOTE | 2018-05-09 16:42 | NUR ---
TRANSFER NOTE- *LATE ENTRY* 1320 PT TRANSFERED TO MEDICAL FLOOR ON COMFORT CARE FROM ICU. PT SPOUSE AT THE BEDSIDE. VERY DISTRAUGHT AND TEARFUL. CALLED NURSING SPOUTER TO REQUEST PASTORAL CARE FOR THE PT SPOUSE.
--- NOTE | 2018-05-09 16:45 | NUR ---
PT SPOUSE CALLED STATED PT WAS PULLING AT HER CATHETER AND TRYING TO CLIMB OUT OF BED. REQUESTED MEDICATION FOR ANXIETY. CALLED DR TO GET AN ORDER FOR ATIVAN. ORDER FOR 1-2 MG IV RECIEVED, SPOUSE STATED PT IS VERY SENSITIVE TO MEDICATION. GAVE 0.5MG IV ATIVAN. PT ANXIETY SEEMS WELL MANAGED AT THIS TIME.
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
--- NOTE | 2018-05-09 17:07 | NUR ---
SHIFT SUMMARY- PT TRANSFERED FROM ICU, ON COMFORT CARE. CURRENTLY SLEEPING SPOUSE AT THE BEDSIDE. NO C/O PAIN NO S&S OF DISTRESS NOTED AT THIS TIME. SPOUSE STATED SHE IS BREATHING HARDER THAN NORMAL, BUT HE DECLINED FOR SAFF TO MEDICATE HER AT THIS TIME, WILL CTM.
--- NOTE | 2018-05-09 19:36 | NUR ---
met with throughout the day. he is distraught and some difficulty following conversation. Family in to visit and support spouse. review of pt with nursing pt resting comfortably. will update staff patricia barger on pt care as per nursing request for support.
--- NOTE | 2018-05-09 20:29 | NUR ---
patient restless in the bed; patient family at the bedside. family concerned patient uncomfortable or running a fever; checked patient + removed some of the extra blankets. patient settled and became restful almost immediately. patient family concerned about her sensitivity to drugs. discussed available meds with family and advised that we would treat minimally to keep her as comfortable as possible without causing any hallucinations, this was agreeable to the patients and daughter.
--- NOTE | 2018-05-09 22:26 | NUR ---
patient resting quietly with eyes closed and in no apparent distress;family present
--- NOTE | 2018-05-10 00:37 | NUR ---
ROUNDED ON PATIENT; RESTING QUIETLY WITH EYES CLOSED; SNORING. FAMILY IN ROOM; SPOKE TO DAUGHTER WILLIE, OFFERED TO TURN PATIENT, FAMILY REFUSED. ADVISED TO CALL AND WE WITLL TURN HER PER FAMILY REQUEST.
--- NOTE | 2018-05-10 02:22 | NUR ---
01:57 ROUNDED ON PATIENT; PER FAMILY PT INCREASINGY RESTLESSS. GAVE PAIN MED PER ORDER WILL CONTINUE TO MONITOR
--- NOTE | 2018-05-10 04:26 | NUR ---
0329 AM: PATIENT PASSED. NOTIFIED CHARGE. NOTIFIED DR CAIN . GAVE FAMILY A LIST OF MORTUARIES. PATIENT DAUGHTER LEFT HER NUMBER FOLLOWS: KIMMIE HARGROVE [phone] PER PATIENT THEY HAVE A BURIAL PLAN THAT INCLUDES CREAMATION SERVICES THROUGH [facility] BUT DOESNT KNOW WHAT MORTUARY. PROVIDED LIST OF MORTUARIES AND INFORMED FAMILY THAT WE NEED A DECISION TATI SO THAT THE BODY MAY BE MOVED.
--- NOTE | 2018-05-10 04:35 | NUR ---
ATTEMPTED TO REACH PATIENTS DAUGHTER KIMMIE HARGROVE. LEFT VOICE MAIL.
--- NOTE | 2018-05-10 06:59 | NUR ---
3rd attempt to reach patients daughter. went to voicemail. left name of day nurse as point of contact for family member.
--- NOTE | 2018-05-10 07:24 | NUR ---
PT WAITING FOR FAMILY TO CHOOSE MORTUARY. RECIEVED INFRMATION FROM LEON MACKAY THAT THE FAMILY HAD CHOSEN [facility] IN [place], PASSED THIS INFO ON TO THE DAY COMPUTER METEOROLOGIST.
--- NOTE | 2018-05-10 09:11 | NUR ---
PT FAMILY CALLED AND STATED THEY DO NOT WANT TO USE [facility] AFTER ALL THEY REQUESTED [facility] THE [facility] IN [place]. PROOF COINS INSPECTOR NOTIFIED OF THE DECISION.
== END 2018-05-10 03:29 | DRG 682 ==
LOC: ER 14:00 → ERHOLD 15:01 → ER 15:01 → ICUW 15:54 → ERHOLD 15:54 → EDBEDREQ 15:56 → UNDODEPER 20:40 → ICUW 23:41 → MEDS 05-09 13:20
PROVIDERS: Emergency Medicine; Internal Medicine; Internal Medicine Nephrology; ADMIT Hospitalist
DX: N17.9 Acute kidney failure, unspecified (principal); K72.00 Acute and subacute hepatic failure without coma; E87.2 Acidosis; I50.22 Chronic systolic (congestive) heart failure; Z68.41 Body mass index [BMI] 40.0-44.9, adult; D68.4 Acquired coagulation factor deficiency; Z51.5 Encounter for palliative care; E11.42 Type 2 diabetes mellitus with diabetic polyneuropathy; E11.22 Type 2 diabetes mellitus with diabetic chronic kidney disease; N18.9 Chronic kidney disease, unspecified; D63.1 Anemia in chronic kidney disease; E78.5 Hyperlipidemia, unspecified; E86.0 Dehydration; E87.5 Hyperkalemia; F03.90 Unspecified dementia, unspecified severity, without behavioral disturbance, psychotic disturbance, mood disturbance, and anxiety; F32.9 Major depressive disorder, single episode, unspecified; G47.33 Obstructive sleep apnea (adult) (pediatric); I48.91 Unspecified atrial fibrillation; I95.9 Hypotension, unspecified; K21.9 Gastro-esophageal reflux disease without esophagitis; M10.9 Gout, unspecified
CPT/HCPCS: 36415; 36430; 36600; 51702; 71045; 76770; 80047; 80053; 80202; 81001; 82140; 82803; 82947; 83605; 83735; 84100; 84145; 85014; 85025; 85610; 86850; 86900; 86901; 87040; 87086; 87486; 87581; 87633; 87798; 96361; 96365; 96366; 96375; 96376; 99285-25; J1170; J1956; J2060; J3370; J7030; J7070; J7120; P9059